=== PATIENT | male | born 1940 | race Caucasian/White ===

== ENCOUNTER → 2017-04-09 | Outpatient (CLI) | payer OTHER ==
[~2017-04-09] MED LIST: LOSA1TAB16 PO
[2017-04-09 10:50] LABS: HEMATOCRIT 45.6 % (39.2-51.8); HEMOGLOBIN 15.5 g/dL (13.7-18.0); WHITE BLOOD COUNT 8.6 x10^3/uL (3.4-10)
[2017-04-09 11:01] LABS: BLOOD UREA NITROGEN 34 mg/dL (7-18)
[2017-04-09 11:04] LABS: ASPARTATE AMINO TRANSFERASE 23 U/L (15-37)
== END | disposition home or self-care (01) ==
LOC: STAR 09:40
PROVIDERS: ATTEND Urology
DX: Z01.818 Encounter for other preprocedural examination (principal); R94.31 Abnormal electrocardiogram [ECG] [EKG]; N20.0 Calculus of kidney; R79.1 Abnormal coagulation profile
CPT/HCPCS: 36415; 80053; 81003; 85025; 85610; 85730; 87086; 93005

== ENCOUNTER 2017-04-16 07:28 | Day surgery (SDC) | payer OTHER ==
[2017-04-09 10:27] VITALS: BP 118/80
[~2017-04-16] VITALS: Ht 175.3 cm; Wt 79.0 kg
[~2017-04-16 07:28] MED LIST changes: -LOSA1TAB16 PO; +LOSA1TAB19 PO
[2017-04-16] MEDS ORDERED: LACTATED RINGERS 1,000 ML IV SCH (08:00)
[2017-04-16] MEDS ORDERED: LIDOCAINE 1%, 2ML SQ PRN (08:00)
[2017-04-16] MEDS ORDERED: LIDOCAINE 1%, 2ML ONE (08:03)
[2017-04-16] MEDS ORDERED: FENTANYL PF 100 MCG/2ML ONE ×2 (09:04→10:49)
[2017-04-16] MEDS ORDERED: MIDAZOLAM 1 MG/ML, 2ML ONE (09:04)
[2017-04-16] MEDS ORDERED: ROCURONIUM 10 MG/ML ONE (09:05)
[2017-04-16] MEDS ORDERED: PROPOFOL 10 MG/ML, 20ML ONE (09:05)
[2017-04-16] MEDS ORDERED: LIDOCAINE-MPF 2% ,5ML ONE (09:05)
[2017-04-16] MEDS ORDERED: GLYCOPYRROLATE 0.2MG/1ML, 5ML ONE (09:08)
[2017-04-16] MEDS ORDERED: NEOSTIGMINE 1 MG/ML, 10ML ONE (09:08)
[2017-04-16] MEDS ORDERED: CIPROFLOXACIN 400MG/200ML PMX ONE (09:34)
[2017-04-16] MEDS ORDERED: PHENYLEPHRINE 10 MG/ML ONE (09:34)
[2017-04-16] MEDS ORDERED: DEXAMETHASONE 4 MG/ML, 1ML ONE ×2 (09:47)
[2017-04-16] MEDS ORDERED: ONDANSETRON 2MG/ML, 2ML IVPush PRN (10:00)
[2017-04-16] MEDS ORDERED: FENTANYL PF 100 MCG/2ML IV PRN (10:00)
[2017-04-16] MEDS ORDERED: HYDROmorphone 1 MG/ML, 1ML IV PRN (10:00)
[2017-04-16] MEDS ORDERED: MEPERIDINE/PF 25MG/0.5ML IVPush PRN (10:00)
[2017-04-16] MEDS ORDERED: hydrALAzine 20 MG/ML, 1ML IV PRN (10:00)
[2017-04-16] MEDS ORDERED: OXYcodone 5 MG/5 ML ORAL.SOL UDC PO PRN (10:00)
[2017-04-16] MEDS ORDERED: PROMETHAZINE 25 MG/ML, 1ML IV PRN (10:00)
[2017-04-16] MEDS ORDERED: LABETALOL 5MG/ML, 20ML IV PRN (10:00)
[2017-04-16] MEDS ORDERED: ACETAMINOPHEN 325 MG TABLET PO PRN (10:00)
[2017-04-16] MEDS ORDERED: ONDANSETRON 2MG/ML, 2ML ONE (10:12)
== END 2017-04-16 13:00 ==
LOC: OUT 07:28
PROVIDERS: ATTEND Urology
DX: N20.0 Calculus of kidney (principal); Z95.0 Presence of cardiac pacemaker
CPT/HCPCS: 50590; 74000; J0744; J1100; J2250; J2370; J2405; J2704; J2710; J3010; J3490; J7120